=== PATIENT | male | born 1945 | race Hispanic/Latino ===

== ENCOUNTER 2019-02-15 08:53 | Emergency (ER) | payer MEDICARE, MEDICAID ==
[~2019-02-15] VITALS: Ht 162.6 cm; Wt 68.0 kg
[~2019-02-15 08:53] MED LIST: GLUCOSA-CHOND-1 EACH PO
[2019-02-15 09:00] VITALS: BP 164/86
--- NOTE | 2019-02-15 09:00 | NUR ---
ED Nurse Note: Patient, homeless, brought in to ER by ambulance from street c/o abdominal pain 03/19 which started this morning. pt aao x2-3 and unable to ambulate. skin soiled and covered with brown and soft stool and it was cleaned by nurses. pt has pressure ulcer on buttocks without slough. calm and cooperative. pt able to change position in bed with assist. homeless log initiated. pt signed on CT scan with contrast consents with fair level of understanding.
[2019-02-15] MEDS ORDERED: Isovue-300 100ml vial INJ PRN (09:15)
[2019-02-15] MEDS ORDERED: Morphine Sulfate 2mg/ml Inj(IV/IM USE ONLY) IVP ONE (09:15)
--- NOTE | 2019-02-15 09:20 | Emergency Room Report ---
History of Present Illness General Chief Complaint: Abdominal Pain Source: Patient Present Illness HPI Patient presents to the emergency department today complaining of abdominal discomfort. Patient has a history of alcohol abuse. Patient is homeless. Apparently a bystander passerby noticed that the patient was not feeling well call 911 and patient was brought here for further evaluation. Patient is a poor historian. He is incontinent of stool. He appears disheveled. He is unable to provide much history other than that he has nausea and abdominal discomfort. Denies any fever chest pain shortness of breath. No other complaints are noted patient noted to be moderate to severe. No other modifying factors. No other associated signs and symptoms. No other complaints were noted. Allergies: Coded Allergies: NO KNOWN ALLERGIES (Unverified Allergy, Unknown, 02/15/19) Patient History Past Medical History: HTN PMH Narrative Prior to admission for chest pain Past Surgical History: none Social History: Reports: alcohol use Reviewed Nursing Documentation: PMH: Agreed; PSxH: Agreed Nursing Documentation-PMH Past Medical History: No History, Except For Hx Cardiac Problems: Yes Hx Hypertension: Yes Hx Cancer: No Hx Gastrointestinal Problems: No Hx Neurological Problems: No Review of Systems All Other Systems: negative except mentioned in HPI Physical Exam Vital Signs Date Time Temp Pulse Resp B/P (MAP) Pulse Ox O2 Delivery O2 Flow Rate FiO2 02/15/19 08:51 98.4 105 20 171/94 (119) 95 Room Air Sp02 EP Interpretation: reviewed, normal General Appearance: alert, mild distress, obese, other - Appears disheveled Head: atraumatic Eyes: bilateral eye normal inspection ENT: normal ENT inspection, hearing grossly normal, normal voice Neck: normal inspection, full range of motion, supple Respiratory: normal inspection, lungs clear, normal breath sounds, no respiratory distress, no retraction, no wheezing Cardiovascular #1: regular rate, rhythm, no edema Gastrointestinal: normal inspection, normal bowel sounds, soft, no guarding, no hernia, tenderness - Epigastrium Genitourinary: no CVA tenderness, other - Excoriations in the buttock ulcers in the right thigh Musculoskeletal: normal inspection, back normal, normal range of motion Neurologic: normal inspection, alert, responsive Psychiatric: depressed affect Skin: other - Skin breakdown in the buttock area Medical Decision Making Diagnostic Impression: Primary Impression: Abdominal pain Additional Impressions: Elevated transaminase level Alcoholic liver disease Colitis ER Course Patient presents to the emergency department today complaining of abdominal pain. Differential considerations include acute pancreatitis, cholecystitis, gastritis, hepatitis, appendicitis just to name a few. Patient also appears to be disheveled and incontinent of stool and requires evaluation and possible placement. Patient laboratory work-up shows elevated liver enzymes CT scan shows evidence of colitis. Given patient's presentation patient was given IV antibiotics. Case was discussed with [facility]. Case was accepted by Dr. Menezes. Case number was [id number]. Patient will be [facility] to [facility] for further evaluation and transferred to [facility]. Labs Test 02/15/19 09:10 02/15/19 10:30 White Blood Count 8.9 K/UL (4.8-10.8) Red Blood Count 4.39 M/UL (4.70-6.10) Hemoglobin 14.0 G/DL (14.2-18.0) Hematocrit 40.5 % (42.0-52.0) Mean Corpuscular Volume 92 FL (80-99) Mean Corpuscular Hemoglobin 31.9 PG (27.0-31.0) Mean Corpuscular Hemoglobin Concent 34.6 G/DL (32.0-36.0) Red Cell Distribution Width 13.2 % (11.6-14.8) Platelet Count 225 K/UL (150-450) Mean Platelet Volume 5.9 FL (6.5-10.1) Neutrophils (%) (Auto) 84.9 % (45.0-75.0) Lymphocytes (%) (Auto) 7.9 % (20.0-45.0) Monocytes (%) (Auto) 5.9 % (1.0-10.0) Eosinophils (%) (Auto) 0.3 % (0.0-3.0) Basophils (%) (Auto) 1.0 % (0.0-2.0) Sodium Level 134 MMOL/L (136-145) Potassium Level 4.1 MMOL/L (3.5-5.1) Chloride Level 93 MMOL/L (98-107) Carbon Dioxide Level 30 MMOL/L (21-32) Anion Gap 11 mmol/L (5-15) Blood Urea Nitrogen 8 mg/dL (7-18) Creatinine 0.6 MG/DL (0.55-1.30) Estimat Glomerular Filtration Rate mL/min (>60) Glucose Level 127 MG/DL (74-106) Calcium Level 9.0 MG/DL (8.5-10.1) Total Bilirubin 3.2 MG/DL (0.2-1.0) Direct Bilirubin 1.4 MG/DL (0.0-0.3) Aspartate Amino Transf (AST/SGOT) 116 U/L (15-37) Alanine Aminotransferase (ALT/SGPT) 47 U/L (12-78) Alkaline Phosphatase 225 U/L (46-116) Total Creatine Kinase 135 U/L (26-308) Creatine Kinase MB 3.3 NG/ML (0.0-3.6) Creatine Kinase MB Relative Index 2.4 Troponin I 0.000 ng/mL (0.000-0.056) Total Protein 6.9 G/DL (6.4-8.2) Albumin 3.8 G/DL (3.4-5.0) Globulin 3.1 g/dL Albumin/Globulin Ratio 1.2 (1.0-2.7) Lipase 254 U/L (73-393) Serum Alcohol < 3 mg/dL Urine Color Yellow Urine Appearance Clear Urine pH 7 (4.5-8.0) Urine Specific [place] 1.010 (1.005-1.035) Urine Protein 3+ (NEGATIVE) Urine Glucose (UA) Negative (NEGATIVE) Urine Ketones 3+ (NEGATIVE) Urine Blood 4+ (NEGATIVE) Urine Nitrite Negative (NEGATIVE) Urine Bilirubin Negative (NEGATIVE) Urine Urobilinogen 4 MG/DL (0.0-1.0) Urine Leukocyte Esterase Negative (NEGATIVE) Urine RBC 20-30 /HPF (0 - 0) Urine WBC 0-2 /HPF (0 - 0) Urine Squamous Epithelial Cells Occasional /LPF Urine Bacteria Occasional /HPF (NONE) Urine Opiates Screen Negative (NEGATIVE) Urine Barbiturates Screen Negative (NEGATIVE) Phencyclidine (PCP) Screen Negative (NEGATIVE) Urine Amphetamines Screen Negative (NEGATIVE) Urine Benzodiazepines Screen Positive (NEGATIVE) Urine Cocaine Screen Negative (NEGATIVE) Urine Marijuana (THC) Screen Negative (NEGATIVE) EKG Diagnostic Results Rate: normal Rhythm: NSR ST Segments: no acute changes Rhythm Strip Diag. Results EP Interpretation: yes Rate: 100 Rhythm: NSR, no PVC's, no ectopy Chest X-Ray Diagnostic Results Chest X-Ray Diagnostic Results : Chest X-Ray Ordered: Yes # of Views/Limited/Complete: 1 View Indication: Chest Pain EP Interpretation: No Impression: No acute disease CT/MRI/US Diagnostic Results CT/MRI/US Diagnostic Results : Imaging Test Ordered: CT abdomen pelvis: Sigmoid swelling colonic swelling inflammation Last Vital Signs Date Time Temp Pulse Resp B/P (MAP) Pulse Ox O2 Delivery O2 Flow Rate FiO2 02/15/19 08:51 98.4 105 20 171/94 (119) 95 Room Air Status: improved Disposition: XFER SHT-TRM HOSP Condition: Serious Referrals: [facility] (PCP) Colten León MD Feb 15, 2019 09:20
--- NOTE | 2019-02-15 09:24 | NUR ---
ED Nurse Note: per EMS pt's friend is having his WC at address [address].
[2019-02-15 09:30] LABS: EOSINOPHILS % (AUTO) 0.3 % (0.0-3.0); HEMATOCRIT 40.5 % (42.0-52.0); LYMPHOCYTES % (AUTO) 7.9 % (20.0-45.0); MEAN CORPUSCULAR VOLUME 92 FL (80-99); MONOCYTES % (AUTO) 5.9 % (1.0-10.0); NEUTROPHILS % (AUTO) 84.9 % (45.0-75.0); PLATELET COUNT 225 K/UL (150-450); RED BLOOD COUNT 4.39 M/UL (4.70-6.10); RED CELL DISTRIBUTION WIDTH 13.2 % (11.6-14.8); WHITE BLOOD COUNT 8.9 K/UL (4.8-10.8)
[2019-02-15] MEDS ORDERED: NKM (09:30)
[2019-02-15 09:48] LABS: ANION GAP 11 mmol/L (5-15); BLOOD UREA NITROGEN 8 mg/dL (7-18); CARBON DIOXIDE 30 MMOL/L (21-32); CHLORIDE 93 MMOL/L (98-107); CREATININE 0.6 MG/DL (0.55-1.30); POTASSIUM 4.1 MMOL/L (3.5-5.1); SODIUM 134 MMOL/L (136-145)
--- NOTE | 2019-02-15 09:57 | NUR ---
ED Nurse Note: x-ray at bedside.
--- NOTE | 2019-02-15 10:02 | NUR ---
ED Nurse Note: pt went down for CT in stable condition.
[2019-02-15 10:10] LABS: ALANINE AMINOTRANSFERASE 47 U/L (12-78); ALBUMIN 3.8 G/DL (3.4-5.0); ALBUMIN/GLOBULIN RATIO 1.2 (1.0-2.7); ALKALINE PHOSPHATASE 225 U/L (46-116); ASPARTATE AMINO TRANSFERASE 116 U/L (15-37); BILIRUBIN,TOTAL 3.2 MG/DL (0.2-1.0); CKMB 3.3 NG/ML (0.0-3.6); CREATINE KINASE 135 U/L (26-308)
[2019-02-15 10:11] LABS: BILIRUBIN,DIRECT 1.4 MG/DL (0.0-0.3)
--- NOTE | 2019-02-15 10:20 | NUR ---
ED Nurse Note: pt came back from CT in stable condition.
--- NOTE | 2019-02-15 10:48 | Diagnostic Imaging Report ---
Clinical Indication: Abdominal discomfort and pain, nausea Technique: No oral contrast utilized, per emergency room physician request IV administration nonionic contrast. Venous phase spiral acquisition obtained through the abdomen and pelvis. Multiplanar reconstructions were generated. Total dose length product 661.95 mGycm. CTDIvol(s) 14.12 mGy. Dose reduction achieved using automated exposure control Comparison: none. Reference made to abdominal sonogram 07/19/2013 Findings: Lack of enteric contrast limits assessment of the GI tract. The appendix is normal. There is equivocal mild wall thickening of the ascending colon. This may be an artifact of under distention, however. There is also questionable wall thickening of the distal sigmoid colon and proximal rectum. There is some presacral edema. No small bowel distention. There is a moderate to large hiatal hernia. The stomach is otherwise unremarkable. The duodenum is unremarkable. A trace amount of free intraperitoneal fluid is seen over the dome of the spleen. The liver is diffusely hypoattenuating, consistent with fatty change. No focal abnormality. The gallbladder and bile ducts are unremarkable. The pancreas is slightly atrophic. The spleen demonstrates an accessory splenule, is otherwise unremarkable. The adrenals and kidneys are unremarkable. No retroperitoneal or mesenteric mass or adenopathy. The bladder is mildly distended. It demonstrates diffuse wall thickening. The prostate is mildly to moderately enlarged, measuring 4.7 cm transverse diameter. There is asymmetric atrophy of the right iliopsoas musculature. The included lung bases demonstrate some posterior dependent atelectatic changes. The bones demonstrate extensive degenerative spondylosis changes. Impression: Suggestion of wall thickening of the distal sigmoid colon and proximal rectum, could indicate distal colitis/proctitis. There is some presacral edema which may be associated. The possibility of underlying mass lesion is not completely excludable. More questionable wall thickening of the ascending colon, probably an artifact of under distention but colitis in this area also a possibility. Bladder wall thickening, could indicate cystitis or chronic bladder outlet obstruction Trace free intraperitoneal fluid over the dome of the spleen, etiology/significance uncertain. Moderate to large hiatal hernia Fatty liver, also previously reported Prostatomegaly Asymmetric atrophy of the right iliopsoas musculature Other findings as noted, including degenerative spondylosis changes, dependent pulmonary atelectatic changes, accessory splenule The CT scanner at [facility] is accredited by the [employer] and the scans are performed using protocols designed to limit radiation exposure to as low as reasonably achievable to attain images of sufficient resolution adequate for diagnostic evaluation.
[2019-02-15 10:50] LABS: APPEARANCE,URINE CLEAR; BILIRUBIN, URINE NEGATIVE (NEGATIVE); GLUCOSE, URINE (UA) NEGATIVE (NEGATIVE); KETONES,URINE 3+ (NEGATIVE); LEUKOCYTE ESTERASE ,URINE NEGATIVE (NEGATIVE); NITRITE,URINE NEGATIVE (NEGATIVE); PH,URINE 7 (4.5-8.0); PROTEIN,URINE 3+ (NEGATIVE); UROBILINOGEN,URINE 4 MG/DL (0.0-1.0)
--- NOTE | 2019-02-15 10:50 | NUR ---
ED Nurse Note: wound pictures were taken and uploaded.
[2019-02-15 10:52] LABS: COLOR,URINE YELLOW
--- NOTE | 2019-02-15 12:25 | Diagnostic Imaging Report ---
Indication: Shortness of breath Technique: One view of the chest Comparison: 07/18/2013 Findings: Lungs and pleural spaces are clear. Heart size is normal . Again demonstrated is a calcified granuloma in the left midlung. Findings are unchanged Impression: No acute process
--- NOTE | 2019-02-15 12:38 | NUR ---
ED Nurse Note: report given to CELINA Ling at [facility].
[2019-02-15 12:49] VITALS: BP 132/80
[2019-02-15 13:10] VITALS: BP 132/80
--- NOTE | 2019-02-15 13:10 | NUR ---
ER DISCHARGE NOTE: Patient is transferred to [facility] with all his belongings. VSS. No s/s of acute distress noted
== END 2019-02-15 13:10 | disposition short-term general hospital (02) ==
LOC: EDBD 08:53 → EMR 09:15
DX: R10.9 Unspecified abdominal pain (principal); K52.9 Noninfective gastroenteritis and colitis, unspecified; K70.9 Alcoholic liver disease, unspecified; Z59.0 Homelessness; I10 Essential (primary) hypertension; M47.9 Spondylosis, unspecified; N40.0 Benign prostatic hyperplasia without lower urinary tract symptoms; K76.0 Fatty (change of) liver, not elsewhere classified; K44.9 Diaphragmatic hernia without obstruction or gangrene
CPT/HCPCS: 36415; 71045; 74177; 80053; 80307; 81003; 82248; 82550; 82553; 83690; 84484; 85025; 87081; 93005; 96365; 96368; 96375; 99285; G0480; J1956; J2270; J2405; J7040; Q9967; 80329